=== PATIENT | male | born 1940 | race Caucasian/White ===

== ENCOUNTER 2017-08-12 16:03 | Outpatient (RCR) | payer SELFPAY ==
[2017-08-12 16:48] LABS: International Normalized Ratio 2.4; Prothrombin Time (Protime)PT. 25.1 SECONDS (11.7-14.9)
== END 2017-08-12 16:15 | disposition home or self-care (01) ==
LOC: LAB 16:03
PROVIDERS: Family Provider Family Medicine Geriatric Medicine; PCP Family Medicine Geriatric Medicine; Visit Provider Internal Medicine Cardiovascular Disease
DX: I48.1 Persistent atrial fibrillation (principal)
CPT/HCPCS: 36415; 85610

== ENCOUNTER 2017-09-10 14:51 | Outpatient (RCR) | payer SELFPAY ==
[2017-09-10 16:07] LABS: International Normalized Ratio 2.1
== END 2017-09-10 15:00 | disposition home or self-care (01) ==
LOC: LAB 14:51
PROVIDERS: Family Provider Family Medicine Geriatric Medicine; PCP Family Medicine Geriatric Medicine; Visit Provider Internal Medicine Cardiovascular Disease
DX: I48.1 Persistent atrial fibrillation (principal)
CPT/HCPCS: 36415; 85610

== ENCOUNTER 2017-10-07 16:37 | Outpatient (RCR) | payer SELFPAY ==
[2017-10-07 17:38] LABS: Prothrombin Time (Protime)PT. 22.6 SECONDS (11.7-14.9)
== END 2017-10-07 17:00 | disposition home or self-care (01) ==
LOC: LAB 16:37
PROVIDERS: Family Provider Family Medicine Geriatric Medicine; PCP Family Medicine Geriatric Medicine; Visit Provider Internal Medicine Cardiovascular Disease
DX: I48.1 Persistent atrial fibrillation (principal)
CPT/HCPCS: 36415; 85610

== ENCOUNTER → 2017-11-08 10:45 | Outpatient (CLI) | payer SELFPAY ==
--- NOTE | 2017-11-08 10:46 | ECHOD_ITS ---
Reason For Study: AFIB/FLUTTER Procedure This was a 2D Doppler, Color Flow transthoracic echocardiogram. The study was technically difficult. PT scanned in supine position, unable to lie in left lateral decubitis position. Exam performed in department. Left Ventricle Moderately dilated left ventricle. The estimated ejection fraction is 25 %. There is severe global hypokinesis of the left ventricle. Right Ventricle Normal size and thickness. Normal systolic function. Atria The left atrium is severely enlarged. Normal right atrium. Normal atrial septum. Mitral Valve The mitral valve is structurally normal. No prolapse or stenosis seen. Tricuspid Valve Normal tricuspid valve. Trivial tricuspid valve insufficiency. Right ventricular systolic pressure estimated to be 47 mmHg. Moderate pulmonary hypertension. Aortic Valve Normal aortic valve. Trisinus/trileaflet aortic valve. Pulmonic Valve Normal pulmonic valve. Great Vessels Normal aortic root. Normal arch. Normal inferior vena cava. Inferior vena cava collapse with sniff. Pericardium/Pleural No pericardial effusion. MMode/2D Measurements & Calculations LVIDd: 5.4 cm IVSd: 1.2 cm Ao root diam: 3.7 cm LVIDs: 4.5 cm LVPWd: 1.2 cm LA dimension: 3.9 cm RVDd: 2.8 cm FS: 17.3 % LAV(MOD-bp): 79.2 ml LA A4 area: 24.4 cm2 RA A4 area: 19.3 cm2 LAV(MOD-bp) Indexed: 35.5 ml/m2 LAV(MOD-sp2): 72.2 ml LAV(MOD-sp4): 74.8 ml Doppler Measurements & Calculations MV E max gwen: 85.6 cm/sec Ao V2 max: 64.8 cm/sec LV V1 max: 53.1 cm/sec Ao max P.7 mmHg LV V1 max P.1 mmHg PA V2 max: 57.6 cm/sec TR max gwen: 277.5 cm/sec TR max P.9 mmHg Interpretation Summary Moderately dilated left ventricle. The estimated ejection fraction is 25 %. There is severe global hypokinesis of the left ventricle. The left atrium is severely enlarged. Trivial tricuspid valve insufficiency. Right ventricular systolic pressure estimated to be 47 mmHg. Moderate pulmonary hypertension. Compared to echo report dated 03/05/2016, LV function has decreased from 50% to 25%. Pt appears to be in atrial fibrillation. Ordering Physician: Abdullahi Bruno Referring Physician: Mina Trevino Chi Performed By: Jackie Sidhu, OLVIN, RVT
== END ==
PROVIDERS: Family Provider Family Medicine Geriatric Medicine; PCP Family Medicine Geriatric Medicine; Visit Provider Internal Medicine Cardiovascular Disease
DX: I48.1 Persistent atrial fibrillation (principal); I25.10 Atherosclerotic heart disease of native coronary artery without angina pectoris; I25.2 Old myocardial infarction; Q21.1 Atrial septal defect
CPT/HCPCS: 93306

== ENCOUNTER 2017-11-08 11:38 | Outpatient (RCR) | payer SELFPAY ==
[2017-11-08 13:15] LABS: International Normalized Ratio 2.3; Prothrombin Time (Protime)PT. 25.6 SECONDS (11.7-14.9)
== END 2017-11-08 12:00 | disposition home or self-care (01) ==
LOC: LAB 11:38
PROVIDERS: Family Provider Family Medicine Geriatric Medicine; PCP Family Medicine Geriatric Medicine; Visit Provider Internal Medicine Cardiovascular Disease
DX: I48.1 Persistent atrial fibrillation (principal)
CPT/HCPCS: 36415; 85610

== ENCOUNTER → 2017-11-20 07:47 | Day surgery (SDC) | payer SELFPAY ==
--- NOTE | 2017-11-16 08:55 | RAD_ITS ---
STUDY: X-RAY CHEST REASON FOR EXAM: Male, 77 years old. CHF. TECHNIQUE: PA and lateral views of the chest. COMPARISON: 03/04/2016. FINDINGS: There is mild elevation of the right hemidiaphragm. No new infiltrate is seen. There is no demonstrated pleural abnormality. Sternal cerclage wires and vascular clips are present from a prior sternotomy and coronary artery bypass graft procedure (CABG). The heart is borderline in size. Normal mediastinum and lito. Normal visualized pulmonary arteries. There is atherosclerotic calcification of the aortic arch with tortuosity. There are degenerative changes of the visualized thoracic spine. There is degenerative osteoarthritis of the bilateral shoulders. There is no demonstrated abnormality of the visualized soft tissue structures of the upper abdomen. RAD/Chest PA and Lateral IMPRESSION: Status post CABG. No active pulmonary disease. Electronically Signed: Sunil Abreu MD at 10:06 EDT Tel , Service support ,
[2017-11-16 09:10] LABS: Absolute Neutrophil Count 4.3 X10^3/uL (2.0-7.7); Basophil# 0.01 X10^3/uL; Basophil% 0.2 % (0-1); Eosinophil# 0.19 X10^3/uL; Eosinophils% 3.1 % (0-5); Hematocrit 41.7 % (40-54); Hemoglobin 13.6 g/dl (13.0-16.5); Lymphocyte % 17.8 % (19-41); Mean Corp Hgb Conc 32.6 g/gl (32-36); Mean Corpuscular Hgb 28.5 pg (27.0-32.0); Mean Corpuscular Volume 87.4 fL (80-94); Mean Platelet Vol. 9.7 fl (6.2-12.0); Monocyte# 0.54 X10^3/uL; Monocyte% 8.7 % (0-10); Neutrophil # 4.34 X10^3/uL (2.7-7.7); POSITIVE COUNT NO; POSITIVE DIFFERENTIAL NO; POSITIVE MORPHOLOGY NO; Platelet Count 167 K/mm3 (150-450); RBC Distribution Width CV 13.7 % (11.6-14.6); RBC Distribution Width SD 43.9 fl (35.1-43.9); Red Blood Count 4.77 M/mm3 (4.6-6.2); White Blood Count 6.2 K/mm3 (4.4-11.0)
[2017-11-16 09:17] LABS: International Normalized Ratio 2.7; Prothrombin Time (Protime)PT. 29.1 SECONDS (11.7-14.9)
[2017-11-16 09:18] LABS: Partial Thromboplast Time 38.4 Seconds (24.1-36.2)
[2017-11-16 09:27] LABS: Anion Gap 8 (5-15); BUN 9 mg/dL (7-18); BUN/Creat Ratio 9.5 RATIO (10-20); Calcium,Total 8.5 mg/dL (8.5-10.1); Chloride 110 mmol/L (98-107); Creatinine, Serum 0.95 mg/dL (0.70-1.30); EST Glomerular Filtration Rate 82 mL/min (>60); Est Glom Filt Rate - Afr Amer 99 mL/min (>60); Glucose 94 mg/dL (74-106); Potassium 3.9 mmol/L (3.5-5.1); Sodium Level 143 mmol/L (136-145)
[2017-11-19 11:07] VITALS: BMI 32.8
[2017-11-20 08:00] LABS: Prothrombin Time Fingerstick 13.3 SEC (11.9-14.4)
--- NOTE | 2017-11-20 11:03 | CL.D_ITS ---
Patient Name: MT MCRAE Study Date: 11/20/2017 Performing: Abdullahi Bruno MD Ht: 68.11 inches 173 cm : 1940 Wt: 216.05 lbs 98 kg Age: 77 Gender: male BSA: 2.11 PROCEDURE(S) PERFORMED [id number]/COR/LV/CABG CLINICAL PROFILE AND INDICATIONS Indications: Cardiac Arrythmia, Cardiomyopathy Heart Failure: NYHA Class: 3, Heart Failure Type: Systolic Stress/Imaging Stress/Image Study Performed: No CAD Presentations: Other: Worsening CHF/LV function Comorbidities/Risk Factors: Hypertension Dyslipidemia Prior CHF Prior CABG CONCLUSIONS Triple vessel CAD of the LAD, LCx and RCA Widely patent OCONNOR To DIAG Widely patent SVG to OM#! Widely patent SVG to PDA. Segmented LV systolic dysfunction- Severe LVEF: by LV gram 30 % RECOMMENDATIONS Restart coumadin, cont plavix in lieu of asa, start amiodarone 200mg po daily with DCCV in 4 weeks. Increase coreg to 12.5mg po bid and repeat BP check in 2 weeks. Repeat echo in 3 months if DCCV is successful. AICD in no improvement of LV function despite DCCV and medical therapy. DESCRIPTION OF PROCEDURE The patient arrived to the procedure lab. The risks and benefits of the procedure as well as a full d escription of our services here and current unavailability of surgical backup were fully explained to the patient and/or their significant other prior to the catheterization. The Timeout was completed, verifying the correct patient and procedure. The patient's procedural site was prepped and draped in the usual fashion. Local anesthetic was given subcutaneously to right groin region with Lidocaine 2%. Using a modified Seldinger technique, arterial access was obtained via the right femoral artery, a 4 Fr sheath was inserted Left Coronary Artery selective angiography was performed in multiple views us ing a 4 Fr. JL5 catheter. Right Coronary Artery selective angiography was then performed in multiple views using a 4 Fr. 3DRC catheter. Saphenous Vein graft to the OM 1 selective angiography was perform ed in multiple views using a 4 Fr. 3DRC catheter. Left internal mammary artery graft to the LAD selec tive angiography was performed in multiple views using a 4 Fr. 3DRC catheter. Saphenous Vein graft to the RPDA selective angiography was performed in multiple views using a 4 Fr. AR MOD 2 catheter. Left Ventriculography was performed in VELA projection using a 4 Fr. Pigtail catheter. LV to AO pullback p ressures were then recorded.The arterial sheath was pulled and manual compression applied until hemos tasis is achieved. CORONARY ANGIOGRAPHY DOMINANCE: Right Dominant LEFT HEART ASSESSMENT Left Ventricular Ejection Fraction: by LV Gram 30 % Inferior Mid Hypokinesis - Severe. Anterior Hypokinesis - Moderate Depressed Left Ventricular systolic function Elevated Left Ventricular End Diastolic Pressure LEFT MAIN: Moderate calcification, Mild luminal irregularities less than 30% LEFT ANTERIOR DECENDING ARTERY: PROX LAD: is occluded DIAGONAL 1: Proximal - Mild luminal irregularities less than 30% CIRCUMFLEX ARTERY: MID CIRC: 75 % Stenosis RIGHT CORONARY ARTERY: MID RCA: is occluded GRAFTS: OCONNOR graft to the 2nd Diagonal is patent Saphenous Vein graft to the 1st OM is patent Saphenous Vein graft to the RPDA is patent COLLATERAL FLOW: Collateral flow from Left to Right Collateral flow from Right to Left COMPLICATIONS No Complications PROCEDURE MEDICATIONS Versed 1 mg IV Oxygen: 2 L/min via nasal cannula SUMMARY OF HEMODYNAMIC DATA Time AIR REST ECG 08:31:36 AO 148/90 (121) SA 10:34:14 LV 136/-13, 8 10:46:51 LV 137/-16, 17 10:46:58 LVp 141/-16, 6 10:47:06 AOp 140/86 (110) 10:47:11 Signed By Abdullahi Bruno MD On 11/20/2017 11:02:37 Abdullahi Bruno MD
== END ==
PROVIDERS: Family Provider Family Medicine Geriatric Medicine; PCP Family Medicine Geriatric Medicine; Visit Provider Internal Medicine Cardiovascular Disease
DX: I25.10 Atherosclerotic heart disease of native coronary artery without angina pectoris (principal); I42.9 Cardiomyopathy, unspecified; I10 Essential (primary) hypertension; E78.5 Hyperlipidemia, unspecified; E66.9 Obesity, unspecified; I48.1 Persistent atrial fibrillation; I25.2 Old myocardial infarction; Q21.1 Atrial septal defect; Z79.82 Long term (current) use of aspirin; Z95.1 Presence of aortocoronary bypass graft; Z79.01 Long term (current) use of anticoagulants; M19.012 Primary osteoarthritis, left shoulder; M19.011 Primary osteoarthritis, right shoulder
CPT/HCPCS: 36415; 36416; 71046; 80048; 85025; 85610; 85730; 93459; 99152; 99153; J7040; Q9967; C1769; C1894

== ENCOUNTER 2017-12-05 12:37 | Outpatient (RCR) | payer SELFPAY ==
[2017-11-22 09:59] LABS: International Normalized Ratio 1.3; Prothrombin Time (Protime)PT. 16.4 SECONDS (11.7-14.9)
[2017-11-28 11:22] LABS: International Normalized Ratio 1.7; Prothrombin Time (Protime)PT. 20.3 SECONDS (11.7-14.9)
[2017-12-05 13:36] LABS: International Normalized Ratio 2.9; Prothrombin Time (Protime)PT. 30.8 SECONDS (11.7-14.9)
== END 2017-12-05 13:00 | disposition home or self-care (01) ==
LOC: LAB 12:37
PROVIDERS: Family Provider Family Medicine Geriatric Medicine; PCP Family Medicine Geriatric Medicine; Visit Provider Internal Medicine Cardiovascular Disease
DX: I48.1 Persistent atrial fibrillation (principal); I63.9 Cerebral infarction, unspecified; Q21.1 Atrial septal defect; I43 Cardiomyopathy in diseases classified elsewhere; Z79.01 Long term (current) use of anticoagulants
CPT/HCPCS: 36415; 85610

== ENCOUNTER → 2017-12-24 11:09 | Outpatient (CLI) | payer SELFPAY ==
--- NOTE | 2017-12-24 11:30 | RAD_ITS ---
STUDY: X-RAY - RIGHT SHOULDER REASON FOR EXAM: Pain status post injury. TECHNIQUE: 4 view(s) of the shoulder. COMPARISON: None. FINDINGS: There is inferior subluxation of the glenohumeral articulation suggesting a joint effusion. Normal acromioclavicular joint. Normal acromion. Normal humeral head and visualized proximal humerus. The soft tissue structures are unremarkable. Normal visualized pulmonary apex. RAD/Shoulder min 2 Views IMPRESSION: Inferior subluxation of the glenohumeral joint suggesting a joint effusion. Electronically Signed: Francisco Heller MD at 13:22 EDT Tel , Service support ,
== END ==
PROVIDERS: Family Provider Family Medicine Geriatric Medicine; PCP Family Medicine Geriatric Medicine
DX: S42.201A Unspecified fracture of upper end of right humerus, initial encounter for closed fracture (principal)
CPT/HCPCS: 73030

== ENCOUNTER 2018-01-30 08:35 | Outpatient (RCR) | payer SELFPAY ==
[2018-01-13 17:28] LABS: Prothrombin Time (Protime)PT. 51.8 SECONDS (11.7-14.9)
[2018-01-13 17:42] LABS: International Normalized Ratio 5.7
[2018-01-16 09:52] LABS: International Normalized Ratio 3.9; Prothrombin Time (Protime)PT. 38.2 SECONDS (11.7-14.9)
[2018-01-30 09:09] LABS: International Normalized Ratio 3.4; Prothrombin Time (Protime)PT. 34.4 SECONDS (11.7-14.9)
== END 2018-01-30 10:00 | disposition home or self-care (01) ==
LOC: LAB 08:35
PROVIDERS: Family Provider Family Medicine Geriatric Medicine; PCP Family Medicine Geriatric Medicine; Visit Provider Internal Medicine Cardiovascular Disease
DX: I48.1 Persistent atrial fibrillation (principal); I63.9 Cerebral infarction, unspecified; Q21.1 Atrial septal defect; I43 Cardiomyopathy in diseases classified elsewhere; Z79.01 Long term (current) use of anticoagulants
CPT/HCPCS: 36415; 85610

== ENCOUNTER 2018-03-06 12:33 | Outpatient (RCR) | payer SELFPAY ==
[2018-02-27 08:50] LABS: Hematocrit 41.4 % (40-54); Hemoglobin 13.2 g/dl (13.0-16.5); Mean Corp Hgb Conc 31.9 g/gl (32-36); Mean Corpuscular Hgb 28.6 pg (27.0-32.0); Mean Corpuscular Volume 89.6 fL (80-94); Mean Platelet Vol. 9.1 fl (6.2-12.0); Platelet Count 226 K/mm3 (150-450); RBC Distribution Width CV 15.5 % (11.6-14.6); RBC Distribution Width SD 50.3 fl (35.1-43.9); Red Blood Count 4.62 M/mm3 (4.6-6.2); White Blood Count 6.8 K/mm3 (4.4-11.0)
[2018-02-27 08:51] LABS: Scan Indicated on CBC? Y/N NO
[2018-02-27 08:58] LABS: International Normalized Ratio 4.8; Prothrombin Time (Protime)PT. 45.2 SECONDS (11.7-14.9)
[2018-02-27 09:07] LABS: Hemoglobin A1c 5.7 % (4.2-6.3)
[2018-02-27 09:41] LABS: ALB/GLOB Ratio 0.9 RATIO (0.9-2.4); AST(SGOT) 19 U/L (15-37); Alanine Aminotransfer ALT/SGPT 33 U/L (16-61); Albumin, Serum 3.3 g/dL (3.2-5.0); Alkaline Phosphatase 60 U/L (45-117); Anion Gap 7 (5-15); BUN 13 mg/dL (7-18); BUN/Creat Ratio 10.6 RATIO (10-20); Calcium,Total 8.2 mg/dL (8.5-10.1); Chloride 105 mmol/L (98-107); Cholesterol 120 mg/dL (200); Creatinine, Serum 1.23 mg/dL (0.70-1.30); EST Glomerular Filtration Rate 60 mL/min (>60); Est Glom Filt Rate - Afr Amer 73 mL/min (>60); Globulin 3.6 g/dL (2.2-4.2); Glucose 79 mg/dL (74-106); High Density Lipoprotein 50 mg/dL; Protein, Total 6.9 g/dL (6.4-8.2); Sodium Level 141 mmol/L (136-145); Thyroid Stim Hormone (TSH) 7.04 uIU/mL (0.358-3.74); Triglycerides 177 mg/dL; Very Low Density Lipoprotein 35 mg/dL (5-40)
[2018-03-06 13:09] LABS: Prothrombin Time (Protime)PT. 41.4 SECONDS (11.7-14.9)
[2018-03-06 13:12] LABS: International Normalized Ratio 4.3
== END 2018-03-06 14:00 | disposition home or self-care (01) ==
LOC: LAB 12:33
PROVIDERS: Family Provider Family Medicine Geriatric Medicine; PCP Family Medicine Geriatric Medicine; Visit Provider Internal Medicine Cardiovascular Disease
DX: I48.1 Persistent atrial fibrillation (principal); Q21.1 Atrial septal defect; I43 Cardiomyopathy in diseases classified elsewhere; Z79.01 Long term (current) use of anticoagulants; Z86.73 Personal history of transient ischemic attack (TIA), and cerebral infarction without residual deficits
CPT/HCPCS: 36415; 80053; 80061; 83036; 84443; 85027; 85610

== ENCOUNTER 2018-03-25 09:05 | Outpatient (RCR) | payer SELFPAY ==
[2018-03-25 09:49] LABS: International Normalized Ratio 2.2; Prothrombin Time (Protime)PT. 24.1 SECONDS (11.7-14.9)
== END 2018-04-13 13:20 | disposition home or self-care (01) ==
LOC: LAB 09:05
PROVIDERS: Family Provider Family Medicine Geriatric Medicine; PCP Family Medicine Geriatric Medicine; Visit Provider Internal Medicine Cardiovascular Disease
DX: I48.1 Persistent atrial fibrillation (principal); Q21.1 Atrial septal defect; I43 Cardiomyopathy in diseases classified elsewhere; I63.9 Cerebral infarction, unspecified; Z79.01 Long term (current) use of anticoagulants; Z86.73 Personal history of transient ischemic attack (TIA), and cerebral infarction without residual deficits
CPT/HCPCS: 36415; 85610

== ENCOUNTER 2018-05-08 13:37 | Outpatient (RCR) | payer SELFPAY ==
[2018-04-15 14:47] LABS: Prothrombin Time (Protime)PT. 39.9 SECONDS (11.7-14.9)
[2018-04-15 14:52] LABS: International Normalized Ratio 4.1
[2018-04-29 16:19] LABS: International Normalized Ratio 1.9; Prothrombin Time (Protime)PT. 21.9 SECONDS (11.7-14.9)
[2018-05-08 16:04] LABS: International Normalized Ratio 2.3
== END 2018-05-08 15:00 | disposition home or self-care (01) ==
LOC: LAB 13:37
PROVIDERS: Family Provider Family Medicine Geriatric Medicine; PCP Family Medicine Geriatric Medicine; Referring Provider Internal Medicine Cardiovascular Disease; Visit Provider Internal Medicine Cardiovascular Disease
DX: I48.1 Persistent atrial fibrillation (principal); Q21.1 Atrial septal defect; I43 Cardiomyopathy in diseases classified elsewhere; Z79.01 Long term (current) use of anticoagulants; Z86.73 Personal history of transient ischemic attack (TIA), and cerebral infarction without residual deficits
CPT/HCPCS: 36415; 85610

== ENCOUNTER 2018-05-26 13:35 | Outpatient (RCR) | payer SELFPAY ==
[2018-05-26 15:56] LABS: International Normalized Ratio 2.4; Prothrombin Time (Protime)PT. 26.6 SECONDS (11.7-14.9)
== END 2018-05-26 15:00 | disposition home or self-care (01) ==
LOC: LAB 13:35
PROVIDERS: Family Provider Family Medicine Geriatric Medicine; PCP Family Medicine Geriatric Medicine; Referring Provider Internal Medicine Cardiovascular Disease; Visit Provider Internal Medicine Cardiovascular Disease
DX: I48.1 Persistent atrial fibrillation (principal); Q21.1 Atrial septal defect; I43 Cardiomyopathy in diseases classified elsewhere; Z79.01 Long term (current) use of anticoagulants; Z86.73 Personal history of transient ischemic attack (TIA), and cerebral infarction without residual deficits
CPT/HCPCS: 36415; 85610

== ENCOUNTER 2018-06-26 11:13 | Outpatient (RCR) | payer SELFPAY ==
[2018-06-26 11:31] LABS: Prothrombin Time Fingerstick 22.6 SEC (11.9-14.4)
--- OUTSIDE RECORDS SUMMARY | 2018-08-12 06:38 | XMS RPT_ITS ---
:1940 Author Organization OHIP Support Name Relationship Address Phone NNAMDI MCRAE Unavailable . + [place] [address] R Unavailable Unavailable Unavailable CLEMENTINANNAMDI Unavailable . + [place] [address] R Unavailable Unavailable Unavailable CLEMENTINA NNAMDI Unavailable Unavailable + [place] [address] R Unavailable Unavailable Unavailable NNAMDI MCRAE Unavailable Unavailable + [place] [address] R Unavailable Unavailable Unavailable NNAMDI MCRAE Unavailable Unavailable + [place] [address] R Unavailable Unavailable Unavailable NNAMDI MCRAE Unavailable Unavailable + [place] [address] R Unavailable Unavailable Unavailable MANJURADHANNAMDI REMY Unavailable Unavailable + [place] [address] R Unavailable Unavailable Unavailable NOT GIVEN Unavailable Unavailable Unavailable NOT GIVEN Unavailable Unavailable Unavailable COBLENJONEL, KYLER Unavailable [address] [place] [address] N/A Unavailable Unavailable + COBLENTZ, KYLER Unavailable [address] [place]available [place] [id number] NOT GIVEN Unavailable Unavailable Unavailable COBLENTZ, KYLER Unavailable [address] Unavailable [place], [place] [id number] NOT GIVEN Unavailable Unavailable Unavailable NOT GIVEN Unavailable Unavailable Unavailable NNAMDI MCRAE Unavailable Unavailable + [place] [address] R Unavailable Unavailable Unavailable NNAMDI MCRAE Unavailable Unavailable + [place] [address] R Unavailable Unavailable Unavailable NNAMDI MCRAE Unavailable Unavailable + [place] [address] R Unavailable Unavailable Unavailable NNAMDI MCRAE Unavailable Unavailable + [place] [address] R Unavailable Unavailable Unavailable NNAMDI MCRAE Unavailable Unavailable + [place] [address] R Unavailable Unavailable Unavailable NNAMDI MCRAE Unavailable Unavailable + [place] [address] R Unavailable Unavailable Unavailable R Unavailable Unavailable Unavailable R Unavailable Unavailable Unavailable R Unavailable Unavailable Unavailable NNAMDI MCRAE Unavailable Unavailable + [place] [address] R Unavailable Unavailable Unavailable COBLENTZ, TRAVIS Unavailable [address] + [place] [facility] [place] [address] R Unavailable Unavailable Unavailable R Unavailable Unavailable Unavailable R Unavailable Unavailable Unavailable COBLENTZ, TRAVIS Unavailable [address] + [place] [facility] [place] [address] R Unavailable Unavailable Unavailable COBLENTZ, TRAVIS Unavailable [address] + [place] [address] R Unavailable Unavailable Unavailable COBLENTZ, TRAVIS Unavailable [address] + [place] [facility] [place] [address] R Unavailable Unavailable Unavailable COBLENTZ, TRAVIS Unavailable [address] + [place] [address] R Unavailable Unavailable Unavailable Care Team Providers Name Role Phone NO, DOCTOR ON Consulting Unavailable KATHARINA BONILLA Admitting Unavailable KATHARINA BONILLA Attending Unavailable KATHARINA BONILLA Primary Care Unavailable KATHARINA BONILLA Admitting Unavailable KATHARINA BONILLA Attending Unavailable KATHARINA BONILLA Primary Care Unavailable NO, DOCTOR ON Consulting Unavailable KATHARINA BONILLA PA Admitting Unavailable KATHARINA BONILLA PA Attending Unavailable KATHARINA BONILLA Primary Care Unavailable NON-STAFF, PHYSICIAN Admitting Unavailable NON-STAFF, PHYSICIAN Attending Unavailable NON-STAFF, PHYSICIAN Primary Care Unavailable LEONA MAYA MD Admitting Unavailable LEONA MAYA MD Attending Unavailable LEONA MAYA MD Primary Care Unavailable LEONA MAYA MD Consulting Unavailable PROVIDER, UNKNOWN Consulting Unavailable PROVIDER, UNKNOWN Consulting Unavailable PROVIDER, UNKNOWN Consulting Unavailable LEONA MAYA MD Admitting Unavailable LEONA MAYA MD Attending Unavailable LEONA MAYA MD Primary Care Unavailable NO, DOCTOR ON Consulting Unavailable Abdullahi Coburn Attending Unavailable Uriel, Mina Chi Referring Unavailable Abdullahi Coburn Attending Unavailable Abdullahi Coburn Referring Unavailable Uriel, Mina Chi Primary Care Unavailable Zulma, Leona Consulting Unavailable Abdullahi Coburn Attending Unavailable Uriel, Mina Chi Primary Care Unavailable Abdullahi Coburn Attending Unavailable Abdullahi Coburn Referring Unavailable Uriel, Mina Chi Primary Care Unavailable Abdullahi Coburn Attending Unavailable Abdullahi Coburn Referring Unavailable Uriel, Mina Chi Primary Care Unavailable Abdullahi Coburn Attending Unavailable Abdullahi Coburn Referring Unavailable Uriel, Mina Chi Primary Care Unavailable Abdullahi Coburn Attending Unavailable Abdullahi Coburn Referring Unavailable Uriel, Mina Chi Primary Care Unavailable Enedina Dennis Attending Unavailable Abdullahi Coburn Attending Unavailable Uriel, Mina Chi Referring Unavailable Uriel, Mina Chi Primary Care Unavailable Abdullahi Coburn Attending Unavailable Abdullahi Coburn Referring Unavailable Uriel, Mina Chi Primary Care Unavailable Abdullahi Coburn Attending Unavailable Abdullahi Coburn Referring Unavailable Uriel, Mina Chi Primary Care Unavailable Abdullahi Coburn Attending Unavailable Abdullahi Coburn Referring Unavailable Uriel, Mina Chi Primary Care Unavailable Abdullahi Coburn Attending Unavailable Abdullahi Coburn Attending Unavailable Abdullahi Coburn Attending Unavailable Abdullahi Coburn Referring Unavailable Uriel, Mina Chi Primary Care Unavailable Uriel, Mina Chi Primary Care Unavailable BRITANY PEREZ Attending Unavailable BRITANY PEREZ Referring Unavailable Abdullahi Coburn Attending Unavailable Abdullahi Coburn Attending Unavailable Abdullahi Coburn Referring Unavailable Uriel, Mina Chi Primary Care Unavailable Zulma, Leona Consulting Unavailable Abdullahi Coburn Attending Unavailable Abdullhai Coburn Referring Unavailable Uriel, Mina Chi Primary Care Unavailable Zulma, Leona Consulting Unavailable Abdullahi Coburn Attending Unavailable Abdullahi Coburn Referring Unavailable Uriel, Mina Chi Primary Care Unavailable Zulma, Leona Consulting Unavailable Abdullahi Coburn Attending Unavailable Abdullahi Coburn Referring Unavailable Uriel, Mina Chi Primary Care Unavailable Zulma, Leona Consulting Unavailable Abdullahi Coburn Attending Unavailable Abdullahi Coburn Referring Unavailable Uriel, Mina Chi Primary Care Unavailable Zulma, Leona Consulting Unavailable PROBLEMS PROBLEMS DATE TYPE CONDITION / CODE ATTENDING STATUS SOURCE Unknown I25.10 - Abdullahi Coburn Active [place] [facility] Atherosclerotic heart Community disease of [facility] coronary artery Repository without angina pectoris / I25.10(ICD-10) Unknown E78.5 - Abdullahi Coburn Active [place] [facility] Hyperlipidemia, Community unspecified / Hospital E78.5(ICD-10) Repository Unknown I48.1 - Persistent Abdullahi Coburn Active [place] atrial fibrillation / Community I48.1(ICD-10) Hospital Repository Principle Hypothyroidism, ZULMA, Active [place] 8 Diagnosis unspecified / LEONA GALVAN [facility] E039(ICD-10) Hospital Repository Principle Cerebral infarction, ZULMA, Active [facility] [place] 8 Diagnosis unspecified / LEONA GALVAN [facility] I639(ICD-10) Hospital Repository Admitting Pneumonia, unspecified CHAD, Active [facility] [place] 8 Diagnosis organism / [facility] J189(ICD-10) Hospital Repository Principle Pneumonia, unspecified CHAD, Active [facility] [place] 8 Diagnosis organism / [facility] J189(ICD-10) Hospital Repository Secondary Heart failure, CHAD, Active [facility] [place] 8 Diagnosis unspecified / [facility] I509(ICD-10) Hospital Repository Admitting Heart failure, CHAD, Active [facility] [place] 8 Diagnosis unspecified / [facility] I509(ICD-10) Hospital Repository Principle Heart failure, CHAD, Active [facility] [place] 8 Diagnosis unspecified / [facility] I509(ICD-10) Hospital Repository Secondary Pneumonia, unspecified CHAD, Active [facility] [place] 8 Diagnosis organism / [facility] J189(ICD-10) Hospital Repository Unknown S42.201A - Unspecified BRITANY PEREZ Active [place] [facility] fracture of upper end Community of right humerus, Hospital initial encounter for Repository closed fracture / S42.201A(ICD-10) Unknown I43 - Cardiomyopathy Abdullahi Coburn Active [place] in diseases classified Community elsewhere / Hospital I43(ICD-10) Repository Unknown Z95.1 - Presence of Abdullahi Coburn Active [place] [facility] aortocoronary bypass Community graft / Z95.1(ICD-10) Hospital Repository Unknown I25.2 - Old myocardial Abdullahi Coburn Active [place] [facility] infarction / Community I25.2(ICD-10) Hospital Repository Unknown 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 Active [place] defect / Q21.1(ICD-10) [facility] Hospital Repository Unknown I63.9 - Cerebral Abdullahi Coburn Active [place] 8 infarction, Community unspecified / Hospital I63.9(ICD-10) Repository Unknown 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 [address] [place] [address] OFFICE VISIT Date of Service: 06/26/18 MR#: [id number] Acct: [id number] Name: DERIK MCRAE Rep #: [id number] : 1940 Provider: Abdullahi Coburn MD Age/Sex: 78/M Location: [facility] [place] Status: Signed HPI HPI Chief Complaint: Routine f/u Details: Mr. Mcrae is a very pleasant 78-year-old nondiabetic obese gentleman, with a history of hypertension, hypercholesterolemia, coronary artery disease status post three-vessel bypass surgery by Dr. Penn at [facility] on 04/28/94. At that time he received a OCONNOR to the diagonal, saphenous vein graft to the obtuse marginal, and a saphenous vein graft to the PDA of the RCA. He has had no catheterization since that time. Apparently this was performed after the patient had an acute inferior wall myocardial infarction and was transferred for further care. At that time he had an occluded RCA with [id number] collaterals and a subtotal stenosis of the LAD and diagonal system. Following that he saw Dr. Rahman at [facility] but has not seen himin at least 3 years. Patient has been managed by his PCP and on 03/27/16 the patient presented with a right MCA infarct and acute left-sided weakness treated with IV TPA. Subsequent to that he has slowly gotten better and has now been discharged home undergoing physical therapy at home. He was found to have paroxysmal atrial fibrillation during his stay. An echocardiogram was performed which demonstrated an LVEF of 50% and a small right to left interatrial shunt/PFO. Patient been placed on Coumadin and has been tolerating this well. Despite this, he has a fairly dense stroke on the left side, is unable to read, cannot use a walker but does walk with a cane. He has had no presyncope or syncope, falls, lightheadedness or dizziness. The family wishes to transfer her INR maintenance to our office. From a cardiac standpoint he denies any exertional chest pain, angina, shortness of breath or dyspnea on exertion prior to or subsequent his CVA. He is currently walking with a cane with unstable grounds. He is taking and tolerating his medicines well. Patient was supposed to undergo cardioversion and we start started amiodarone in anticipation of that, but the patient declined cardioversion. He is still in atrial fibrillation by physical exam. He has had no changes since his last visit In office today's blood pressure is 132/68, pulse is 88 and irregular. His physical exam demonstrates clear lungs bilaterally, irregularly irregular rhythm, normal S1/S2. He has no edema. His lipids as of 03/05/16 showed an LDL of 57 and HDL of 41. Repeat lipids are pending. EKG dated 03/27/16 showed atrial fibrillation with rapid ventricular response, old inferior/posterior wall myocardial infarction, and PVC. Intake Vital Signs06/26/18 Height 5 ft 8 in 06/26/18 Weight: 214 lb 06/26/18 Body Mass Index (BMI) 32.5 06/26/18 Blood Pressure 110/64 Intake Visit Reasons: 6 M Engineering Consultant Required: No Accompanied by: Allergies No Known Allergies Allergy (Verified 06/26/18 11:49) Medications Aspirin [Aspirin, Baby] 81 mg PO DAILY@0800 03/04/16 [History Confirmed 11/19/17] Acetaminophen [Tylenol Tablet] 650 mg PO Q6H PRN PRN #0 tab 04/03/16 [Rx Confirmed 11/19/17] Tamsulosin HCl [Flomax] 0.4 mg PO DAILY@1730 #30 cap 04/03/16 [Rx Confirmed 11/19/17] galantamine 4 mg tablet 4 mg PO BID tab 10/20/17 [History Confirmed 11/19/17] carvedilol 6.25 mg tablet 6.25 mg PO BID #180 tab 04/08/18 [Rx] warfarin 1 mg tablet 1 mg PO DAILY #90 tab 04/15/18 [Rx Confirmed 06/26/18] warfarin 2 mg tablet 2 mg PO .COMPLEX #0 tab 04/15/18 [Rx Confirmed 06/26/18] atorvastatin 80 mg tablet 80 mg PO QHS #90 tab 06/26/18 [Rx Confirmed 06/26/18] levothyroxine 75 mcg tablet 75 mcg PO DAILY 06/26/18 [History Confirmed 06/26/18] [facility] Medical History Old inferior wall myocardial infarction (Chronic) Patent foramen ovale (Chronic) Persistent atrial fibrillation (Chronic) CVA (cerebral vascular accident) (Chronic) 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 ); negative for fatigue, weakness, body ache, fever(s), headache(s), chills, frequent falls, night sweats, daytime sleepiness, difficulty sleeping, excessive sweating, weight gain, weight loss, increased appetite, poor appetite or anorexia Eyes Eyes: Negative for blind spots, loss of peripheral vision, transient loss of vision, blurry vision, change in vision, double vision, floaters, tunnel vision or other ENT ENT: Negative for headache(s), dizziness, hearing loss, tinnitus, Nosebleed/epistaxis, balance problems, post nasal drip, lip swelling, tongue swelling, bleeding gums, hoarseness, neck pain, dry mouth or other Cardio Chest Pain: No Palpitations: No Resp Respiratory: Negative for SOB with activity, SOB at rest, SOB orthopnea\SOB lying down, Coughing up blood/hemoptysis, chest congestion, pain on inspiration, snoring, stridor, wheezing, crackles, paroxysmal nocturnal dyspnea or other GI GI: Negative nausea, vomiting, heartburn, constipation, belching, bloating, cramping, vomiting blood/hematemesis, bright, red blood in stools, black,tarry stools, loose stools, Difficulty Swallowing or other : Negative for hematuria, frequent nighttime urination/ nocturia, erectile dysfunction or abnormal vaginal bleeding Musc Musc: Negative for balance problems, muscle aches/ myalgia, muscle weakness or joint pain Skin Skin: Negative redness, non-healing lesions, rash, unusual bruising, skin ulcer, wounds, jaundice or other Neuro Neuro: Negative for weakness, headache(s), frequent falls, blurry vision, double vision, dizziness, lightheadedness, near syncope, syncope, orthostatic symptoms, confusion, memory loss, restless legs, vertigo, seizures, lack of coordination or other [place] Hematologic/Lymphatic: Negative for easy bleeding, easy bruising, enlarged lymph nodes or other Endo Endo: Negative for fatigue, excessive sweating, cold intolerance, heat intolerance, flushing, increased thirst/drinking, increased hunger, hair loss, hair growth or other Psych Psych: Negative for anxiety, depression, thoughts of harming anyone, thoughts of harming yourself, visual hallucinations, panic attacks or audible hallucinations Allergy Allergy/Immunology: Negative for lip swelling, Negative for tongue swelling, Negative for rash, Negative for throat swelling, Negative for hives Cardiology Exam Const Appearance: cooperative, healthy appearing and no acute distress Nutritional Appearance: well nourished Orientation: alert, oriented x3 and oriented to person Head Head: normal to inspection, atraumatic and normocephalic Nose: external nose normal Face and Sinus: face symmetric Mouth: oral mucosae normal Eyes General: appearance normal, both eyes and all related structures Eyelids: eyelids normal Conjunctivae: conjunctivae normal Pupils: PERRL and normal by confrontation EOM: EOM intact bilaterally Neck Neck: normal visual inspection and full ROM Carotids: normal carotid upstroke Chest Chest inspection: normal inspection of the chest Auscultation: Bilateral: Clear to Auscultation Cardio Palpation: normal PMI Rate: regular rate Rhythm: irregular rhythm Heart sounds: S1 normal and S2 normal GI GI: normal to inspection, no hepatosplenomegaly and bowel sounds present Neuro General: alert, oriented x3, awake, CN's II-XI intact bilaterally and moves all extremities Skin Skin: no rashes or lesions noted Extremities Pulses: Normal: Right Femoral Pulse, Left Femoral Pulse, Right Dorsalis Pedis Pulse, Left Dorsalis Pedis Pulse, Right Posterior Tibial Pulse, Left Posterior Tibial Pulse, Right Radial Pulse, Left Radial Pulse Lower Extremity Edema: None: Bilateral Psych Psychological: normal affect Assessment AND Plan 1. Persistent atrial fibrillation I48.1 Plan 1. Persistent atrial fibrillation: The patient is status post CVA, and we had attempted to do DC cardiovert him but the patient declines at this time. We will discontinue his amiodarone as there is no point in proceeding with amiodarone if there is no cardioversion going forward and the patient remains in atrial fibrillation anyhow. He did not appear to have a chemical cardioversion. He will continue his Coreg and warfarin going forward for life. 2. Atherosclerotic heart disease of [place] coronary artery without angina pectoris I25.10 Plan 2. Coronary artery disease: No exertional anginal symptoms at this time. No indication for any additional testing. Continue baby aspirin and Coreg. Orders Orders: 3. Hyperlipidemia E78.5 Plan 3. Hyperlipidemia: His LDL and HDL cholesterol are at goal as of 02/27/18. His LDL was 35 and HDL was 50. Continue Lipitor. 4. Return office in 6 months. This note was generated using a voice recognition system and there may be incorrect words, spelling or punctuation that were not noted when reviewing the office note prior to saving. Orders Orders: Plan Detail Other Medications Refilled: Follow Up +6M (Coburn) Coding Level of Care Code Off vis,est,level 3 Diagnoses Persistent atrial fibrillation I48.1 Atherosclerotic heart disease of [place] coronary artery without angina pectoris I25.10 Hyperlipidemia E78.5 Coding Level of Care Code Off vis,est,level 3 Diagnoses Persistent atrial fibrillation I48.1 Atherosclerotic heart disease of [place] coronary artery without angina pectoris I25.10 Hyperlipidemia E78.5 Supplemental Info Supplemental Information Labs LDL Cholesterol 35 mg/dL (0-130) 02/27/18 HDL Cholesterol 50 mg/dL (40-) 02/27/18 Triglycerides 177 mg/dL (-199) 02/27/18 VLDL Cholesterol 35 mg/dL (5-40) 02/27/18 Diagnostics Echocardiogram 11/08/17 Cardiac Catheterization 11/20/17 Chest X-Ray 11/16/17 07/24/18 1612 <Electronically signed by Abdullahi Coburn MD> Date Abdullahi Coburn MD Cosigner Signature: Date (if applicable) CC: Mina Trevino MD PROTIME W/INR Collected: 06/26/2018 Status: F Source: [place] FINGERSTICK 11:23 AM [facility] TYPE CODE TESTS RESULT OUT OF REFERENCE UNITS RANGE LAB L9200.1001 11.9-14.4 SEC High PROTIME ISTAT 22.6 Result Comment: Reference Range 11.9 - 14.4 LAB L9200.2000 Normal INR ISTAT 1.90 Result Comment: Critical Value > 3.5 Performed By: #### L9200.0000 #### [facility] Point of Care [address] [place] [id number] PROTHROMBIN TIME W/INR Collected: 05/26/2018 Status: F Source: [place] 1:37 PM [facility] TYPE CODE TESTS RESULT OUT OF RANGE REFERENCE UNITS LAB L300.4150 11.7-14.9 SECONDS High PROTIME 26.6 LAB L300.4200 Normal INR 2.4 Performed By: #### L300.3900 #### [facility] [address] [place] [address], [id number] PROTHROMBIN TIME W/INR Collected: 05/08/2018 Status: F Source: [place] 1:38 PM [facility] TYPE CODE TESTS RESULT OUT OF RANGE REFERENCE UNITS LAB L300.4150 11.7-14.9 SECONDS High PROTIME 25.0 LAB L300.4200 Normal INR 2.3 Performed By: #### L300.3900 #### [facility] [address] [place], [address] PROTHROMBIN TIME W/INR Collected: 04/29/2018 Status: F Source: [place] 3:10 PM [facility] TYPE CODE TESTS RESULT OUT OF RANGE REFERENCE UNITS LAB L300.4150 11.7-14.9 SECONDS High PROTIME 21.9 LAB L300.4200 Normal INR 1.9 Performed By: #### L300.3900 #### [facility] [address] [place], [address] PROTHROMBIN TIME W/INR Collected: 04/15/2018 Status: F Source: [place] 1:22 PM [facility] TYPE CODE TESTS RESULT OUT OF REFERENCE UNITS RANGE LAB L300.4150 11.7-14.9 SECONDS High PROTIME 39.9 LAB L300.4200 High alert INR 4.1 Result Comment: CRITICAL VALUE VERIFIED. CALLED TO JERRY AT [facility] 04/15/18 1452 Millie Adams. RESULTS READ BACK BY SAME . Performed By: #### L300.3900 #### [facility] [address] [place], [address] PROTHROMBIN TIME W/INR Collected: 03/25/2018 Status: F Source: [place] 9:09 AM [facility] TYPE CODE TESTS RESULT OUT OF RANGE REFERENCE UNITS LAB L300.4150 11.7-14.9 SECONDS High PROTIME 24.1 LAB L300.4200 Normal INR 2.2 Performed By: #### L300.3900 #### [facility] [address] [place], [address] PROTHROMBIN TIME W/INR Collected: 03/06/2018 Status: F Source: [place] 12:41 PM [facility] TYPE CODE TESTS RESULT OUT OF REFERENCE UNITS RANGE LAB L300.4150 11.7-14.9 SECONDS High PROTIME 41.4 LAB L300.4200 High alert INR 4.3 Result Comment: CRITICAL VALUE VERIFIED. CALLED TO JERRY AT [facility] 03/06/18 1311 [place] Adams. RESULTS READ BACK BY SAME . Performed By: #### L300.3900 #### [facility] [address] [place], [place], [address] CBC-COMPLETE BLOOD CNT Collected: 02/27/2018 Status: F Source: [place] NO DIFF 7:40 AM [facility] Order Comment: INR FOR DR COBURN CBC,CMP,LIPID,TSH,A1C FOR DR MAYA TYPE CODE TESTS RESULT OUT OF RANGE REFERENCE UNITS LAB L100.1000 4.4-11.0 K/mm3 Normal WBC 6.8 LAB L100.1200 4.6-6.2 M/mm3 Normal RBC 4.62 LAB L100.1300 13.0-16.5 g/dl Normal HGB 13.2 LAB L100.1400 40-54 % Normal HCT 41.4 LAB L100.1500 80-94 fL Normal MCV 89.6 LAB L100.1600 27.0-32.0 pg Normal MCH 28.6 LAB L100.1700 32-36 g/gl Low MCHC 31.9 LAB L100.1810 11.6-14.6 % High RDW CV 15.5 LAB L100.1820 35.1-43.9 fl High RDW SD 50.3 LAB L100.1900 150-450 K/mm3 Normal PLT 226 LAB L100.2000 6.2-12.0 fl Normal MPV 9.1 Performed By: #### L100.0500 #### [facility] [address] [place], [address] PROTHROMBIN TIME W/INR Collected: 02/27/2018 Status: F Source: [place] 7:40 AM [facility] Order Comment: INR FOR DR COBURN CBC,CMP,LIPID,TSH,A1C FOR DR MAYA CRITICAL VALUE VERIFIED. CALLED TO GEOVANNA 02/27/18 0900 Ellen Sims. RESULTS READ BACK BY GEOVANNA . TYPE CODE TESTS RESULT OUT OF REFERENCE UNITS RANGE LAB L300.4150 11.7-14.9 SECONDS High PROTIME 45.2 LAB L300.4200 High alert INR 4.8 Performed By: #### L300.3900 #### [facility] [address] [place], [address] HEMOGLOBIN A1C Collected: 02/27/2018 Status: F Source: [facility] 7:40 AM [facility] Order Comment: INR FOR DR COBURN CBC,CMP,LIPID,TSH,A1C FOR DR MAYA TYPE CODE TESTS RESULT OUT OF RANGE REFERENCE UNITS LAB L501.9985 4.2-6.3 % Normal HGB A1C 5.7 Performed By: #### L501.9985 #### [facility] [address] [place], [address] COMPREHENSIVE METABOLIC Collected: 02/27/2018 Status: F Source: [facility] 7:40 AM [facility] Order Comment: INR FOR DR COBURN CBC,CMP,LIPID,TSH,A1C FOR DR MAYA TYPE CODE TESTS RESULT OUT OF RANGE REFERENCE UNITS LAB L501.0100 74-106 mg/dL Normal GLU 79 Result Comment: Please note revised GLUCOSE reference range effective 2017. LAB L501.1000 7-18 mg/dL Normal BUN 13 LAB L501.1100 0.70-1.30 mg/dL Normal CREAT,SERUM 1.23 Result Comment: The validity of the calculated GFR AND GFRAA in patients over 70 years has not been determined. Clinical correlation is essential. LAB L501.1110 >60 mL/min Normal EST GFR 60 Result Comment: Non- GFR Calc LAB L501.1115 >60 mL/min Normal EST GFR - AA 73 Result Comment: GFR Calc LAB L501.1300 10-20 RATIO Normal BUN/CRE 10.6 LAB L501.1500 6.4-8.2 g/dL T Normal PROT 6.9 LAB L501.1800 3.2-5.0 g/dL Normal ALB 3.3 LAB L501.1950 2.2-4.2 g/dL Normal GLOB 3.6 LAB L501.2000 0.9-2.4 RATIO Normal A/G 0.9 LAB L501.2200 8.5-10.1 mg/dL Low CA 8.2 LAB L501.4100 15-37 U/L Normal AST 19 LAB L501.4305 45-117 U/L Normal ALK P 60 LAB L501.4405 16-61 U/L Normal ALT 33 LAB L501.4600 0.20-1.00 mg/dL T Normal BILI 0.80 LAB L501.5300 136-145 mmol/L NA Normal 141 LAB L501.5600 3.5-5.1 mmol/L K Normal 4.0 LAB L501.5900 98-107 mmol/L CL Normal 105 LAB L501.6100 21.0-32.0 mmol/L Normal CO2 29.0 LAB L501.6200 5-15 Normal GAP 7 Performed By: #### L500.4050, L500.4100, L501.9520 #### [facility] [address] [place], [place], [id number] LIPID PROFILE Collected: 02/27/2018 Status: F Source: [place] 7:40 AM [facility] Order Comment: INR FOR DR COBURN CBC,CMP,LIPID,TSH,A1C FOR DR MAYA TYPE CODE TESTS RESULT OUT OF RANGE REFERENCE UNITS LAB L501.4900 200 mg/dL Normal CHOL 120 Result Comment: <200 mg/dL Desirable 200-240 mg/dL Borderline >240 mg/dL High Risk LAB L501.5000 mg/dL Normal TRIG 177 Result Comment: The drugs N-Acetylcysteine and Metamizole may falsely depress this assay. Serum Triglycerides Reference Interval Normal <150 mg/dL Borderline high 150 - 199 mg/dL High 200 - 499 mg/dL Very High > or = 500 mg/dL LAB L501.6400 mg/dL Normal HDL 50 Result Comment: The drugs N-Acetylcysteine and Metamizole may falsely depress this assay. Reference Range HDL <40 mg/dL Low HDL Cholesterol HDL >or= 60 mg/dL High HDL Cholesterol LAB L501.6500 0-130 mg/dL Normal LDL 35 LAB L501.6600 5-40 mg/dL Normal VLDL 35 Performed By: #### L500.4050, L500.4100, L501.9520 #### [facility] [address] [place], [place], [id number] THYROID STIM HORMONE Collected: 02/27/2018 Status: F Source: [place] (T[facility]) 7:40 AM [facility] Order Comment: INR FOR DR COBURN CBC,CMP,LIPID,TSH,A1C FOR DR MAYA TYPE CODE TESTS RESULT OUT OF RANGE REFERENCE UNITS LAB L501.9520 0.358-3.74 uIU/mL High TSH 7.04 Performed By: #### L500.4050, L500.4100, L501.9520 #### [facility] [address] [place], [address] CHEST 2 VIEWS Observed: 02/17/2018 Status: F Source: [facility] 7:[address] [address] Patient: DERIK MCRAE Phone#: : [phone] Age: 77 Gender: M Pt. Type: Out Account: [id number] Location: Ordering: KATHARINA BONILLA Exam Date: 02/17/2018/19:10 Family Phys: NO DOCTOR Charge Code: 095966 Physician: Crane Order #: [id number] DLP Dose#: PROCEDURE: X-RAY CHEST 2 VIEWS COMPARISON: None. INDICATIONS: PNEUMONIA FINDINGS: The patient is rotated to the left somewhat limiting the evaluation. LUNGS: There are chronic interstitial changes. No focal parenchymal abnormality. VASCULATURE: Normal. Unremarkable pulmonary vasculature. CARDIAC: Cardiomegaly. MEDIASTINUM: There is prominence of the right hilum. PLEURA: Normal. No effusion or pleural thickening. BONES: Degenerative changes of the spine. OTHER: Median sternotomy wires and mediastinal surgical clips are present. CONCLUSION: 1. Prominence of the right hilum. This may be due to patient rotation versus underlying abnormality. When the patient is clinically able recommend repeat PA and lateral radiograph for better evaluation. Dictated by: Kendra Smith MD on 02/18/2018 at 8:27 Approved by: Kendra Smith MD on 02/18/2018 at 8:27 PROTHROMBIN TIME W/INR Collected: 01/30/2018 Status: F Source: [place] 8:41 AM [facility] TYPE CODE TESTS RESULT OUT OF RANGE REFERENCE UNITS LAB L300.4150 11.7-14.9 SECONDS High PROTIME 34.4 LAB L300.4200 Normal INR 3.4 Performed By: #### L300.3900 #### [facility] [address], [address] PROTHROMBIN TIME W/INR Collected: 01/16/2018 Status: F Source: [place] 8:54 AM [facility] Order Comment: CRITICAL VALUE VERIFIED. CALLED TO AV 01/16/18 0954 Ellen Sims. RESULTS READ BACK BY AV . TYPE CODE TESTS RESULT OUT OF REFERENCE UNITS RANGE LAB L300.4150 11.7-14.9 SECONDS High PROTIME 38.2 LAB L300.4200 High alert INR 3.9 Performed By: #### L300.3900 #### [facility] [address], [address] PROTHROMBIN TIME W/INR Collected: 01/13/2018 Status: F Source: [place] 4:46 PM [facility] TYPE CODE TESTS RESULT OUT OF REFERENCE UNITS RANGE LAB L300.4150 11.7-14.9 SECONDS High PROTIME 51.8 LAB L300.4200 High alert INR 5.7 Result Comment: CRITICAL VALUE VERIFIED. CALLED TO RAHUL RUSSELL 01/13/18 1741 Tisha Kyle. RESULTS READ BACK BY SAME . Performed By: #### L300.3900 #### [facility] [address] [place], [address] SHOULDER MIN 2 VIEWS Observed: 12/24/2017 Status: F Source: [place] 11:16 AM [facility] [address] [place] [address] Shoulder min 2 Views MR#: [id number] Acct: [id number] Name: CLEMENTINADERIK Blair Rep #: [id number] : 1940 M 77 From: Francisco Heller MD PCP: Uriel GALVAN,Mina Chi Status: REG CLI Study: Shoulder min 2 Views Date of Exam: 12/24/17 Exam# [id number] Ordering Dr: Erica Curtis, Out o. STUDY: X-RAY - RIGHT SHOULDER REASON FOR EXAM: Pain status post injury. TECHNIQUE: 4 view(s) of the shoulder. COMPARISON: None. FINDINGS: There is inferior subluxation of the glenohumeral articulation suggesting a joint effusion. Normal acromioclavicular joint. Normal acromion. Normal humeral head and visualized proximal humerus. The soft tissue structures are unremarkable. Normal visualized pulmonary apex. RAD/Shoulder min 2 Views IMPRESSION: Inferior subluxation of the glenohumeral joint suggesting a joint effusion. Electronically Signed: Francisco Heller MD at 13:22 EDT Tel , Service support , CC: OUT OF TOWN DOCTOR; Mina Trevino MD Die Cutter: Signed PROTHROMBIN TIME W/INR Collected: 12/05/2017 Status: F Source: [facility] 12:41 PM [facility] TYPE CODE TESTS RESULT OUT OF RANGE REFERENCE UNITS LAB L300.4150 11.7-14.9 SECONDS High PROTIME 30.8 LAB L300.4200 Normal INR 2.9 Performed By: #### L300.3900 #### [facility] [address] [place], [place], [address] PROTHROMBIN TIME W/INR Collected: 11/28/2017 Status: F Source: [place] 9:37 AM [facility] Order Comment: Comments: STANDING ORDER Comments: STANDING ORDER TYPE CODE TESTS RESULT OUT OF RANGE REFERENCE UNITS LAB L300.4150 11.7-14.9 SECONDS High PROTIME 20.3 LAB L300.4200 Normal INR 1.7 Performed By: #### L300.3900 #### [facility] [address], [address] PROTHROMBIN TIME W/INR Collected: 11/22/2017 Status: F Source: [place] 8:31 AM [facility] TYPE CODE TESTS RESULT OUT OF RANGE REFERENCE UNITS LAB L300.4150 11.7-14.9 SECONDS High PROTIME 16.4 LAB L300.4200 Normal INR 1.3 Performed By: #### L300.3900 #### [facility] [address] [place], [address] PROTIME W/INR Collected: 11/20/2017 Status: F Source: [place] 7:57 AM [facility] TYPE CODE TESTS RESULT OUT OF RANGE REFERENCE UNITS LAB L9200.1001 11.9-14.4 SEC Normal PROTIME ISTAT 13.3 Result Comment: Reference Range 11.9 - 14.4 LAB L9200.2000 Normal INR ISTAT 1.10 Result Comment: Critical Value > 3.5 Performed By: #### L9200.0000 #### [facility] Point of Care [address] [place] [address] CHEST PA AND LATERAL Observed: 11/16/2017 Status: F Source: [facility] 8:52 AM [facility] Imaging Services [address] [place] [address] Chest PA and Lateral MR#: [id number] Acct: [id number] Name: DERIK MCRAE Rep #: [id number] : 1940 M 77 From: Sunil Abreu MD PCP: Uriel GALVAN,Mina [facility] Status: PRE [facility] Study: Chest PA and Lateral Date of Exam: 11/16/17 Exam# [id number] Ordering Dr: Abdullahi Coburn MD STUDY: X-RAY CHEST REASON FOR EXAM: Male, 77 years old. CHF. TECHNIQUE: PA and lateral views of the chest. COMPARISON: 03/04/2016. FINDINGS: There is mild elevation of the right hemidiaphragm. No new infiltrate is seen. There is no demonstrated pleural abnormality. Sternal cerclage wires and vascular clips are present from a prior sternotomy and coronary artery bypass graft procedure (CABG). The heart is borderline in size. Normal mediastinum and lito. Normal visualized pulmonary arteries. There is atherosclerotic calcification of the aortic arch with tortuosity. There are degenerative changes of the visualized thoracic spine. There is degenerative osteoarthritis of the bilateral shoulders. There is no demonstrated abnormality of the visualized soft tissue structures of the upper abdomen. RAD/Chest PA and Lateral IMPRESSION: Status post CABG. No active pulmonary disease. Electronically Signed: Sunil Abreu MD at 10:06 EDT Tel , Service support , CC: Abdullahi Coburn MD; Mina Trevino MD Die Cutter: Signed CBC W/DIFF, AUTOMATED Collected: 11/16/2017 Status: F Source: [facility] 8:37 AM [facility] TYPE CODE TESTS RESULT OUT OF RANGE REFERENCE UNITS LAB L100.1000 4.4-11.0 K/mm3 Normal WBC 6.2 LAB L100.1200 4.6-6.2 M/mm3 Normal RBC 4.77 LAB L100.1300 13.0-16.5 g/dl Normal HGB 13.6 LAB L100.1400 40-54 % Normal HCT 41.7 LAB L100.1500 80-94 fL Normal MCV 87.4 LAB L100.1600 27.0-32.0 pg Normal MCH 28.5 LAB L100.1700 32-36 g/gl Normal MCHC 32.6 LAB L100.1810 11.6-14.6 % Normal RDW CV 13.7 LAB L100.1820 35.1-43.9 fl Normal RDW SD 43.9 LAB L100.1900 150-450 K/mm3 Normal PLT 167 LAB L100.2000 6.2-12.0 fl Normal MPV 9.7 LAB L100.2100 47-70 % Normal NEUT% 70.0 LAB L100.2200 19-41 % Low LY% 17.8 LAB L100.2300 0-10 % Normal MONO% 8.7 LAB L100.2400 0-5 % Normal EO% 3.1 LAB L100.2500 0-1 % Normal BASO% 0.2 LAB L100.2550 0.0-0.9 % Normal IM GRAN % 0.200 Result Comment: IG% - Immature Granulocytes (promyelocytes, myelocytes and metamyelocytes) > 1% indicates that a LEFT SHIFT is Present. LAB L100.2620 2.0-7.7 X10 3/uL Normal Absolute Neut 4.3 LAB L100.2720 0.83-4.51 X10 3/ul Normal Absolute Lymph 1.10 Performed By: #### L100.0100, L300.3900, L300.4310, L500.2500 #### [facility] [address] [place], [place], [address] PROTHROMBIN TIME W/INR Collected: 11/16/2017 Status: F Source: [facility] 8:37 AM [facility] TYPE CODE TESTS RESULT OUT OF RANGE REFERENCE UNITS LAB L300.4150 11.7-14.9 SECONDS High PROTIME 29.1 LAB L300.4200 Normal INR 2.7 Performed By: #### L100.0100, L300.3900, L300.4310, L500.2500 #### [facility] [address] [place], [place], [id number] PARTIAL THROMBOPLAST Collected: 11/16/2017 Status: F Source: [facility] TIME 8:37 AM [facility] TYPE CODE TESTS RESULT OUT OF REFERENCE UNITS RANGE LAB L300.4310 24.1-36.2 Seconds High PTT 38.4 Performed By: #### L100.0100, L300.3900, L300.4310, L500.2500 #### [facility] [address] [place], [address] BASIC METABOLIC Collected: 11/16/2017 Status: F Source: [facility] PROFILE (BMP) 8:37 AM [facility] TYPE CODE TESTS RESULT OUT OF RANGE REFERENCE UNITS LAB L501.0100 74-106 mg/dL Normal GLU 94 Result Comment: Please note revised GLUCOSE reference range effective 2017. LAB L501.1000 7-18 mg/dL Normal BUN 9 LAB L501.1100 0.70-1.30 mg/dL Normal CREAT,SERUM 0.95 Result Comment: The validity of the calculated GFR AND GFRAA in patients over 70 years has not been determined. Clinical correlation is essential. LAB L501.1110 >60 mL/min Normal EST GFR 82 Result Comment: Non- GFR Calc LAB L501.1115 >60 mL/min Normal EST GFR - AA 99 Result Comment: GFR Calc LAB L501.1300 10-20 RATIO Low BUN/CRE 9.5 LAB L501.2200 8.5-10.1 mg/dL Normal CA 8.5 LAB L501.5300 136-145 mmol/L Normal NA 143 LAB L501.5600 3.5-5.1 mmol/L Normal K 3.9 LAB L501.5900 98-107 mmol/L High CL 110 LAB L501.6100 21.0-32.0 mmol/L Normal CO2 25.0 LAB L501.6200 5-15 Normal GAP 8 Performed By: #### L100.0100, L300.3900, L300.4310, L500.2500 #### [facility] [address] [place], [address] ECHOCARDIOGRAM COMPLETE Observed: 11/08/2017 Status: F Source: [facility] 12:56 PM [facility] Cardiovascular Services [address] [place] [address] Echo Complete 11/08/17 1101 MR#: [id number] Acct: [id number] Name: DERIK MCRAE Rep #: [id number] : 1940 77 From: Abdullahi Coburn MD Attending Dr: Abdullahi Coburn MD Status: REG CLI Ordering Dr: Abdullahi Coburn MD Date: 11/08/17 Location: [facility] Sex: M C Admitted: Reason For Study: AFIB/FLUTTER Procedure This was a 2D Doppler, Color Flow transthoracic echocardiogram. The study was technically difficult. PT scanned in supine position, unable to lie in left lateral decubitis position. Exam performed in department. Left Ventricle Moderately dilated left ventricle. The estimated ejection fraction is 25 %. There is severe global hypokinesis of the left ventricle. Right Ventricle Normal size and thickness. Normal systolic function. Atria The left atrium is severely enlarged. Normal right atrium. Normal atrial septum. Mitral Valve The mitral valve is structurally normal. No prolapse or stenosis seen. Tricuspid Valve Normal tricuspid valve. Trivial tricuspid valve insufficiency. Right ventricular systolic pressure estimated to be 47 mmHg. Moderate pulmonary hypertension. Aortic Valve Normal aortic valve. Trisinus/trileaflet aortic valve. Pulmonic Valve Normal pulmonic valve. Great Vessels Normal aortic root. Normal arch. Normal inferior vena cava. Inferior vena cava collapse with sniff. Pericardium/Pleural No pericardial effusion. MMode/2D Measurements AND Calculations LVIDd: 5.4 cm IVSd: 1.2 cm Ao root diam: 3.7 cm LVIDs: 4.5 cm LVPWd: 1.2 cm LA dimension: 3.9 cm RVDd: 2.8 cm FS: 17.3 % LAV(MOD-bp): 79.2 ml LA A4 area: 24.4 cm2 RA A4 area: 19.3 cm2 LAV(MOD-bp) Indexed: 35.5 ml/m2 LAV(MOD-sp2): 72.2 ml LAV(MOD-sp4): 74.8 ml Doppler Measurements AND Calculations MV E max gwen: 85.6 cm/sec Ao V2 max: 64.8 cm/sec LV V1 max: 53.1 cm/sec Ao max P.7 mmHg LV V1 max P.1 mmHg PA V2 max: 57.6 cm/sec TR max gwen: 277.5 cm/sec TR max P.9 mmHg Interpretation Summary Moderately dilated left ventricle. The estimated ejection fraction is 25 %. There is severe global hypokinesis of the left ventricle. The left atrium is severely enlarged. Trivial tricuspid valve insufficiency. Right ventricular systolic pressure estimated to be 47 mmHg. Moderate pulmonary hypertension. Compared to echo report dated 03/05/2016, LV function has decreased from 50% to 25%. Pt appears to be in atrial fibrillation. Ordering Physician: Abdullahi Coburn Referring Physician: Mina Trevino Chi Performed By: Jackie Sidhu RDCS, RVT 11/08/17 1255 Date Abdullahi Coburn MD CC: Abdullahi Coburn MD; Mina Trevino MD Date Dictated: 11/08/17 1101 Date Transcribed: 11/08/17 1255 Die Cutter: Signed PROTHROMBIN TIME W/INR Collected: 11/08/2017 Status: F Source: [facility] 11:40 AM [facility] TYPE CODE TESTS RESULT OUT OF RANGE REFERENCE UNITS LAB L300.4150 11.7-14.9 SECONDS High PROTIME 25.6 LAB L300.4200 Normal INR 2.3 Performed By: #### L300.3900 #### [facility] [address] [place], [address] CARDIOLOGY VISIT Observed: 10/22/2017 Status: F Source: [facility] REPORT 1:18 PM [facility] [address] [place] [address] OFFICE VISIT Date of Service: 10/22/17 MR#: [id number] Acct: [id number] Name: DERIK MCRAE Rep #: [id number] : 1940 Provider: Abdullahi Coburn MD Age/Sex: 77/M Location: [facility] Status: Signed HPI HPI Chief Complaint: Routine f/u Details: Mr. Mcrae is a very pleasant 77-year-old nondiabetic obese gentleman, with a history of hypertension, hypercholesterolemia, coronary artery disease status post three-vessel bypass surgery by Dr. Penn at [facility] on 04/28/94. At that time he received a OCONNOR to the diagonal, saphenous vein graft to the obtuse marginal, and a saphenous vein graft to the PDA of the RCA. He has had no catheterization since that time. Apparently this was performed after the patient had an acute inferior wall myocardial infarction and was transferred for further care. At that time he had an occluded RCA with uzoa-te-uofdn collaterals and a subtotal stenosis of the LAD and diagonal system. Following that he saw Dr. Rahman at [facility] but has not seen himin at least 3 years. Patient has been managed by his PCP and on 03/27/16 the patient presented with a right MCA infarct and acute left-sided weakness treated with IV TPA. Subsequent to that he has slowly gotten better and has now been discharged home undergoing physical therapy at home. He was found to have paroxysmal atrial fibrillation during his stay. An echocardiogram was performed which demonstrated an LVEF of 50% and a small right to left interatrial shunt/PFO. Patient been placed on Coumadin and has been tolerating this well. Despite this, he has a fairly dense stroke on the left side, is unable to read, cannot use a walker but does walk with a cane. He has had no presyncope or syncope, falls, lightheadedness or dizziness. The family wishes to transfer her INR maintenance to our office. From a cardiac standpoint he denies any exertional chest pain, angina, shortness of breath or dyspnea on exertion prior to or subsequent his CVA. He is currently walking with a cane with unstable grounds. He is taking and tolerating his medicines well. In office today's blood pressure is 132/68, pulse is 88 and irregular. His physical exam demonstrates clear lungs bilaterally, irregularly irregular rhythm, normal S1/S2. He has no edema. His lipids as of 03/05/16 showed an LDL of 57 and HDL of 41. Repeat lipids are pending. EKG dated 03/27/16 showed atrial fibrillation with rapid ventricular response, old inferior/posterior wall myocardial infarction, and PVC. Intake Vital Signs10/22/17 Height 5 ft 8 in Intake Visit Reasons: 6 M FU Allergies No Known Allergies Allergy (Verified 10/22/17 13:00) Medications Aspirin [Aspirin, Baby] 81 mg PO DAILY@0800 03/04/16 [History Confirmed 03/07/16] Levothyroxine [Synthroid] 50 mcg PO MOTUWETHFRSA 03/04/16 [History Confirmed 03/07/16] Acetaminophen [Tylenol Tablet] 650 mg PO Q6H PRN PRN #0 tab 04/03/16 [Rx] Atorvastatin Calcium [Lipitor] 80 mg PO QHS #30 tab 04/03/16 [Rx] Tamsulosin HCl [Flomax] 0.4 mg PO DAILY@1730 #30 cap 04/03/16 [Rx] warfarin 1 mg tablet 1 mg PO .COMPLEX 08/13/17 [History Confirmed 10/07/17] warfarin 2 mg tablet 2 mg PO .COMPLEX 08/13/17 [History Confirmed 10/07/17] carvedilol 6.25 mg tablet 6.25 mg PO BID 10/20/17 [History Confirmed 10/20/17] galantamine 4 mg tablet 4 mg PO BID tab 10/20/17 [History Confirmed 10/20/17] PFSH Family History Father CAD (coronary artery disease) Diabetes Social History Smoking Status: Never smoker ROS Const Const: Negative for fatigue, weakness, difficulty sleeping, frequent falls, headache(s) or excessive sweating Eyes Eyes: Negative for loss of peripheral vision, transient loss of vision, blurry vision or double vision ENT ENT: Negative for headache(s), dizziness, Nosebleed/epistaxis or balance problems Cardio Chest Pain: No Edema: Bilateral (Trace BLE edema) Muscle aches with walking: None Resp Respiratory: Negative for SOB with activity, SOB at rest, SOB orthopnea\SOB lying down or paroxysmal nocturnal dyspnea GI GI: Negative nausea or heartburn : Negative for hematuria Musc Musc: Negative for muscle aches/ myalgia, muscle weakness, joint pain or balance problems Skin Skin: Negative non-healing lesions, unusual bruising or rash Neuro Neuro: Negative for weakness, frequent falls, blurry vision, headache(s), dizziness, lightheadedness, orthostatic symptoms or double vision [place] Hematologic/Lymphatic: Negative for easy bruising Endo Endo: Negative for fatigue, excessive sweating or increased thirst/drinking Psych Psych: Negative for anxiety or depression Allergy Allergy/Immunology: Negative for hives, Negative for rash Cardiology Exam Const Appearance: cooperative, healthy appearing and no acute distress Nutritional Appearance: well nourished Orientation: alert, oriented x3 and oriented to person Head Head: normal to inspection, atraumatic and normocephalic Nose: external nose normal Face and Sinus: face symmetric Mouth: oral mucosae normal Eyes General: appearance normal, both eyes and all related structures Eyelids: eyelids normal Conjunctivae: conjunctivae normal Pupils: PERRL and normal by confrontation EOM: EOM intact bilaterally Neck Neck: normal visual inspection and full ROM Carotids: normal carotid upstroke Chest Chest inspection: normal inspection of the chest Auscultation: Bilateral: Clear to Auscultation Cardio Palpation: normal PMI Rate: regular rate Rhythm: irregular rhythm Heart sounds: S1 normal and S2 normal GI GI: normal to inspection, no hepatosplenomegaly and bowel sounds present Neuro General: alert, oriented x3, awake, CN's II-XI intact bilaterally and moves all extremities Left facial droop. Skin Skin: no rashes or lesions noted Extremities Pulses: Normal: Right Femoral Pulse, Left Femoral Pulse, Right Dorsalis Pedis Pulse, Left Dorsalis Pedis Pulse, Right Posterior Tibial Pulse, Left Posterior Tibial Pulse, Right Radial Pulse, Left Radial Pulse Lower Extremity Edema: None: Bilateral Psych Psychological: normal affect Assessment AND Plan 1. Atherosclerotic heart disease of [place] coronary artery without angina pectoris I25.10 Plan 1. Coronary artery disease: No exertional chest pain or anginal symptoms at this time. No change in his exercise capacity. His blood pressure is under much better control on today's visit. Recommend he continue his Coreg, baby aspirin. Should the patient develop any anginal symptoms, and have a low threshold for a diagnostic stress test. Orders Orders: 2. Hyperlipidemia E78.5 Plan 2. Hyperlipidemia: Patient's prior PCP manages his lipids. His last lipid was in 2016 which was within normal limits. We will obtain the records from his PCPs office. Continue Lipitor for now. 3. Persistent atrial fibrillation I48.1 Plan 3. Atrial fibrillation: The patient's heart rate and blood pressure under good control, and he is tolerating chronic Coumadin therapy well. Continue warfarin and Coreg. We will repeat his echocardiogram to determine if he has had any deterioration of his LV function with his persistent atrial fibrillation. 4. Return office in 6 months. This note was generated using a voice recognition system and there may be incorrect words, spelling or punctuation that were not noted when reviewing the office note prior to saving. Orders Orders: Plan Detail Other Orders Orders: Follow Up +6m (Damion) Coding Level of Care Code Off vis,est,level 3 Diagnoses Atherosclerotic heart disease of [place] coronary artery without angina pectoris I25.10 Hyperlipidemia E78.5 Persistent atrial fibrillation I48.1 Coding Level of Care Code Off vis,est,level 3 Diagnoses Atherosclerotic heart disease of [place] coronary artery without angina pectoris I25.10 Hyperlipidemia E78.5 Persistent atrial fibrillation I48.1 10/22/17 1318 <Electronically signed by Abdullahi Coburn MD> Date Abdullahi Coburn MD Cosigner Signature: Date (if applicable) CC: PROTHROMBIN TIME W/INR Collected: 10/07/2017 Status: F Source: [place]UCY 4:42 PM [facility] [place] CODE TESTS RESULT OUT OF RANGE REFERENCE UNITS LAB L300.4150 11.7-14.9 SECONDS High PROTIME 22.6 LAB L300.4200 Normal INR 2.0 Performed By: #### L300.3900 #### [facility] [place], [place], [id number] PROTHROMBIN TIME W/INR Collected: 09/10/2017 Status: F Source: LUCY 2:57 PM [facility] [place] TYPE CODE TESTS RESULT OUT OF RANGE REFERENCE UNITS LAB L300.4150 11.7-14.9 SECONDS High PROTIME 23.0 LAB L300.4200 Normal INR 2.1 Performed By: #### L300.3900 #### [facility] [address] [place], [address] PROTHROMBIN TIME W/INR Collected: 08/12/2017 Status: F Source: LUCY 4:05 PM [facility] [place] TYPE CODE TESTS RESULT OUT OF RANGE REFERENCE UNITS LAB L300.4150 11.7-14.9 SECONDS High PROTIME 25.1 LAB L300.4200 Normal INR 2.4 Performed By: #### L300.3900 #### [facility] [address] [place], [address] ALLERGIES ALLERGIES DATE TYPE / CODE NAME / CODE REACTION SEVERITY SOURCE 06/26/2018 Drug No Known Unknown Lucy Allergy/639358500(S Allergies/F0019 [facility]) [address]858(RXNORM) Hospital Repository Miscellaneous No Known Moderate Baldev [place] Allergy/025883834(S Allergies (Severity [facility] NOMED CT) Modifier) Hospital (Qualifier Repository Value) ENCOUNTERS ENCOUNTERS ADMIT/DISCHARGE ACCOUNT ADMITTING ENCOUNTER LOCATION SOURCE NUMBER CLASS 07/15/2018 [id number] Ambulatory Lucy Lucy 2 [facility] ing:LAB Repository 06/26/2018/ [id number] Ambulatory BMSBuilding:B [place] 8 4 [facility] Repository 06/26/2018/ [id number] Ambulatory Lucy Lucy 8 3 [facility] ing:LAB Repository 05/26/2018/ [id number] Ambulatory Lucy Lucy 8 9 [facility] ing:LAB Repository 05/08/2018/ [id number] Ambulatory [place] 8 1 [facility] ing:LAB Repository 03/25/2018/ [id number] Ambulatory Lucy [place] 8 3 [facility] ing:LAB Repository 03/06/2018/ [id number] Ambulatory Lucy [place] 8 0 [facility] ing:LAB Repository 03/06/2018 [id number] Umair MAYA MD [facility] Repository 03/05/2018 [id number] ZULMA, Ambulatory Baldev [facility] Repository 02/26/2018 [id number] NON-STAFF, Ambulatory Baldev [facility] Repository 02/17/2018/ [id number] CHAD, Ambulatory Baldev [place] 8 [facility] Repository 02/17/2018/ [id number] CHAD, Ambulatory Baldev [place] 8 [facility] Repository 02/17/2018/ [id number] CHAD, Ambulatory Baldev [place] 8 [facility] Repository 01/30/2018/ [id number] Ambulatory [place] 8 6 [facility] ing:LAB Repository 12/24/2017 [id number] Ambulatory [place] Lucy 2 [facility] ing:RAD Repository 12/05/2017/ [id number] Ambulatory [place] 8 5 [facility] ing:LAB Repository 11/20/2017 [id number] Ambulatory Lucy [place] 4 [facility] ing:CLSP Repository 11/20/2017 [id number] Ambulatory BMSBuilding:W Lucy 4 [facility] Repository 11/20/2017 [id number] Ambulatory BMSBuilding:W [place] 6 [facility] Repository 11/08/2017/ [id number] Ambulatory Lucy [place] 8 3 [facility] ing:LAB Repository 11/08/2017 [id number] Ambulatory [place] Lucy 8 [facility] ing:[facility] Repository 11/08/2017 [id number] Ambulatory BMSBuilding:W Lucy 3 [facility] Repository 10/24/2017 [id number] Ambulatory Lucy Lucy 4 [facility] ing:LAB Repository 10/22/2017/ [id number] Ambulatory BMSBuilding:B [place] 8 8 [facility] Repository 10/20/2017 [id number] Ambulatory BMSBuilding:B [place] 0 [facility] Repository 10/07/2017/ [id number] Ambulatory [place] 8 9 [facility] ing:LAB Repository 09/10/2017/ [id number] Ambulatory [place] 8 0 [facility] ing:LAB Repository 08/12/2017/ [id number] Ambulatory Lucy [place] 8 1 [facility] ing:LAB Repository PAYERS PAYERS ENCOUNTER GUARANTOR PAYER SUBSCRIBER SOURCE 07/15/2018 DERIK R Primary NOT GIVENUNK [place] [id number] Insurance:SELF PAY [facility], Number: Effective Repository [place] [id number]: Date:2018-07-14 () 06/26/2018 DERIK R Primary NOT GIVENUNK [place] [id number] Insurance:SELF PAY [facility], Number: Effective Repository [place] [id number]: Date:2018-06-26 () 06/26/2018 DERIK R Primary NOT GIVENUNK [place] [id number] Insurance:SELF PAY [facility], Number: Effective Repository [place] [id number]: Date:2018-06-17 () 05/26/2018 DERIK R Primary NOT GIVENUNK [place] [id number] Insurance:SELF PAY [facility], Number: Effective Repository [place] [id number]: Date:2018-05-15 () 05/08/2018 DERIK R Primary NOT GIVENUNK [place] [id number] Insurance:SELF PAY [facility], Number: Effective Repository [place] [id number]: Date:2018-04-15 () 03/25/2018 DERIK R Primary NOT GIVENUNK [place] [id number] Insurance:SELF PAY [facility], Number: Effective Repository [place] [phone]: Date:2018-03-18 () 03/06/2018 DERIK R Primary NOT GIVENUNK [place] [id number] Insurance:SELF PAY [facility], Number: Effective Repository [place] [id number]: Date:2018-02-13 (HP) 01/30/2018 DERIK R Primary NOT GIVENUNK [place] [id number] Insurance:SELF PAY [facility], Number: Effective Repository [place] [id number]: Date:2017-12-12 (HP) 12/24/2017 DERIK R Primary Insurance:[facility] DERIK R [place] [id number] PACKAGE PLANPolicy COBLENTZDOB: [id number] [id number] Repository [place] [id number]: Date:2017-12-24 () 12/24/2017 Secondary NOT GIVENUNK Lucy Insurance:SELF PAY [facility] Number: Effective Repository Date:2017-12-24 12/05/2017 DERIK R Primary NOT GIVENUNK [place] [id number] Insurance:SELF PAY [facility], Number: Effective Repository [place] [phone]: Date:2017-11-12 (HP) 11/20/2017 DERIK R Primary NOT GIVENUNK [place] [id number] Insurance:SELF PAY [facility], Number: Effective Repository [place] [id number]: Date:2017-11-11 (HP) 11/20/2017 DERIK R Primary NOT GIVENUNK [place] [id number] Insurance:SELF PAY [facility], Number: Effective Repository [place] [id number]: Date:2017-11-20 (HP) 11/20/2017 DERIK R Primary NOT GIVENUNK [place] [id number] Insurance:SELF PAY [facility], Number: Effective Repository [place] [id number]: Date:2017-11-20 () 11/08/2017 DERIK R Primary NOT GIVENUNK [place] [id number] Insurance:SELF PAY [facility], Number: Effective Repository [place] [phone]: Date:2017-10-14 () 11/08/2017 DERIK R Primary NOT GIVENUNK [place] [id number] Insurance:SELF PAY [facility], Number: Effective Repository [place] [id number]: Date:2017-10-22 () 11/08/2017 DERIK R Primary NOT GIVENUNK [place] [id number] Insurance:SELF PAY [facility], Number: Effective Repository [place] [id number]: Date:2017-11-08 () 10/24/2017 Derik Primary NOT GIVENUNK [place] [id number] Insurance:SELF PAY [facility], Number: Effective Repository [place] [id number]: Date:2017-10-14 () 10/22/2017 DERIK Primary NOT GIVENUNK [place] [id number] Insurance:SELF PAY [facility], Number: Effective Repository [place] [id number]: Date:2017-10-22 () 10/20/2017 Derik Primary NOT GIVENUNK [place] [id number] Insurance:SELF PAY [facility], Number: Effective Repository [place] [id number]: Date:2017-10-20 () 10/07/2017 Derik Primary NOT GIVENUNK [place] [id number] Insurance:SELF PAY [facility], Number: Effective Repository [place] [id number]: Date:2017-10-07 () 09/10/2017 Derik Primary NOT GIVENUNK [place] [id number] Insurance:SELF PAY [facility], Number: Effective Repository [place] [id number]: Date:2017-08-20 () 08/12/2017 Derik Primary NOT GIVENUNK [place] [id number] Insurance:SELF PAY [facility], Number: Effective Repository [place] [id number]: Date:2017-07-15 ()
== END 2018-06-26 12:00 | disposition home or self-care (01) ==
LOC: LAB 11:13
PROVIDERS: Family Provider Family Medicine Geriatric Medicine; PCP Family Medicine Geriatric Medicine; Referring Provider Internal Medicine Cardiovascular Disease; Visit Provider Internal Medicine Cardiovascular Disease
DX: I48.1 Persistent atrial fibrillation (principal); Q21.1 Atrial septal defect; I43 Cardiomyopathy in diseases classified elsewhere; Z79.01 Long term (current) use of anticoagulants; Z86.73 Personal history of transient ischemic attack (TIA), and cerebral infarction without residual deficits
CPT/HCPCS: 36415; 36416; 85610

== ENCOUNTER 2018-09-08 07:32 | Outpatient (RCR) | payer SELFPAY ==
[2018-06-26 11:48] VITALS: BMI 32.5
[2018-08-19 14:52] LABS: Prothrombin Time Fingerstick 18.6 SEC (11.9-14.4)
[2018-09-08 08:49] LABS: International Normalized Ratio 2.6; Prothrombin Time (Protime)PT. 27.6 SECONDS (11.7-14.9)
[2018-09-08 09:07] LABS: AST(SGOT) 17 U/L (15-37); Alanine Aminotransfer ALT/SGPT 18 U/L (16-61); Albumin, Serum 3.4 g/dL (3.2-5.0); Alkaline Phosphatase 77 U/L (45-117); Bilirubin, Direct 0.17 mg/dL (0.00-0.30); Cholesterol 104 mg/dL (200); Globulin 3.5 g/dL (2.2-4.2); High Density Lipoprotein 55 mg/dL; Protein, Total 6.9 g/dL (6.4-8.2); Triglycerides 97 mg/dL; Very Low Density Lipoprotein 19 mg/dL (5-40)
== END 2018-09-11 14:18 | disposition home or self-care (01) ==
LOC: LAB 07:32
PROVIDERS: Family Provider Family Medicine Geriatric Medicine; PCP Family Medicine Geriatric Medicine; Referring Provider Internal Medicine Cardiovascular Disease; Visit Provider Internal Medicine Cardiovascular Disease
DX: I48.1 Persistent atrial fibrillation (principal); Q21.1 Atrial septal defect; I43 Cardiomyopathy in diseases classified elsewhere; Z79.01 Long term (current) use of anticoagulants; Z86.73 Personal history of transient ischemic attack (TIA), and cerebral infarction without residual deficits
CPT/HCPCS: 36415; 36416; 80061; 80076; 85610

== ENCOUNTER 2018-11-11 13:36 | Outpatient (RCR) | payer SELFPAY ==
[2018-06-26 11:48] VITALS: BMI 32.5
[2018-10-14 08:56] LABS: Prothrombin Time Fingerstick 20.4 SEC (11.9-14.4)
[2018-11-11 13:55] LABS: Prothrombin Time Fingerstick 23.4 SEC (11.9-14.4)
== END 2018-11-11 16:00 | disposition home or self-care (01) ==
LOC: LAB 13:36
PROVIDERS: Family Provider Internal Medicine; PCP Internal Medicine; Referring Provider Internal Medicine Cardiovascular Disease; Visit Provider Internal Medicine Cardiovascular Disease
DX: I48.1 Persistent atrial fibrillation (principal); Q21.1 Atrial septal defect; I43 Cardiomyopathy in diseases classified elsewhere; Z79.01 Long term (current) use of anticoagulants; Z86.73 Personal history of transient ischemic attack (TIA), and cerebral infarction without residual deficits
CPT/HCPCS: 36416; 85610

== ENCOUNTER 2019-01-06 10:22 | Outpatient (RCR) | payer SELFPAY ==
[2018-06-26 11:48] VITALS: BMI 32.5
[2019-01-06 10:35] LABS: Prothrombin Time Fingerstick 18.7 SEC (11.9-14.4)
== END 2019-01-06 11:00 | disposition home or self-care (01) ==
LOC: LAB 10:22
PROVIDERS: Family Provider Internal Medicine; PCP Internal Medicine; Referring Provider Internal Medicine Cardiovascular Disease; Visit Provider Internal Medicine Cardiovascular Disease
DX: I48.1 Persistent atrial fibrillation (principal); Q21.1 Atrial septal defect; I43 Cardiomyopathy in diseases classified elsewhere; Z79.01 Long term (current) use of anticoagulants; Z86.73 Personal history of transient ischemic attack (TIA), and cerebral infarction without residual deficits
CPT/HCPCS: 36416; 85610

== ENCOUNTER 2019-02-05 09:44 | Outpatient (RCR) | payer SELFPAY ==
[2018-06-26 11:48] VITALS: BMI 32.5
[2019-02-05 09:55] LABS: Prothrombin Time Fingerstick 23.1 SEC (11.9-14.4)
== END 2019-02-06 06:10 | disposition home or self-care (01) ==
LOC: LAB 09:44
PROVIDERS: Family Provider Internal Medicine; PCP Internal Medicine; Referring Provider Internal Medicine Cardiovascular Disease; Visit Provider Internal Medicine Cardiovascular Disease
DX: I48.1 Persistent atrial fibrillation (principal); Z79.01 Long term (current) use of anticoagulants
CPT/HCPCS: 36416; 85610

== ENCOUNTER 2019-03-10 13:45 | Outpatient (RCR) | payer SELFPAY ==
[2019-02-05 11:15] VITALS: BMI 32.5
[2019-03-10 16:38] LABS: Prothrombin Time Fingerstick 20.2 SEC (11.9-14.4)
== END 2019-03-10 16:00 | disposition home or self-care (01) ==
LOC: LAB 13:45
PROVIDERS: Family Provider Internal Medicine; PCP Family Medicine Geriatric Medicine; Referring Provider Internal Medicine Cardiovascular Disease; Visit Provider Internal Medicine Cardiovascular Disease
DX: I48.1 Persistent atrial fibrillation (principal); Z79.01 Long term (current) use of anticoagulants
CPT/HCPCS: 36416; 85610

== ENCOUNTER 2019-04-28 10:26 | Outpatient (RCR) | payer SELFPAY ==
[2019-02-05 11:15] VITALS: BMI 32.5
[2019-04-28 13:09] LABS: Prothrombin Time Fingerstick 19.2 SEC (11.9-14.4)
== END 2019-04-28 18:00 | disposition home or self-care (01) ==
LOC: LAB 10:26
PROVIDERS: Family Provider Internal Medicine; PCP Family Medicine Geriatric Medicine; Referring Provider Internal Medicine Cardiovascular Disease; Visit Provider Internal Medicine Cardiovascular Disease
DX: I48.19 Other persistent atrial fibrillation (principal); Z79.01 Long term (current) use of anticoagulants
CPT/HCPCS: 36416; 85610

== ENCOUNTER 2019-07-06 15:55 | Outpatient (RCR) | payer SELFPAY ==
[2019-02-05 11:15] VITALS: BMI 32.5
[2019-07-06 17:02] LABS: International Normalized Ratio 1.3; Prothrombin Time (Protime)PT. 15.6 SECONDS (11.7-14.9)
== END 2019-07-06 18:00 | disposition home or self-care (01) ==
LOC: LAB 15:55
PROVIDERS: Family Provider Internal Medicine; PCP Family Medicine Geriatric Medicine; Referring Provider Internal Medicine Cardiovascular Disease; Visit Provider Internal Medicine Cardiovascular Disease
DX: I48.11 Longstanding persistent atrial fibrillation (principal); Z79.01 Long term (current) use of anticoagulants
CPT/HCPCS: 36415; 85610

== ENCOUNTER 2019-09-04 12:14 | Outpatient (RCR) | payer SELFPAY ==
[2019-02-05 11:15] VITALS: BMI 32.5
[2019-09-04 14:06] LABS: Prothrombin Time Fingerstick 18.4 SEC (11.9-14.4)
== END 2019-09-04 18:00 | disposition home or self-care (01) ==
LOC: LAB 12:14
PROVIDERS: Family Provider Internal Medicine; PCP Family Medicine Geriatric Medicine; Referring Provider Internal Medicine Cardiovascular Disease; Visit Provider Internal Medicine Cardiovascular Disease
DX: I48.19 Other persistent atrial fibrillation (principal); Z79.01 Long term (current) use of anticoagulants
CPT/HCPCS: 36416; 85610